=== PATIENT | female | born 1955 | race Caucasian/White ===

== ENCOUNTER → 2016-12-05 | Outpatient (CLI) | payer OTHER | LOC: BMCIMAGING 14:37 | PROVIDERS: ATTEND Podiatrist Foot & Ankle Surgery ==

== ENCOUNTER → 2017-01-07 | Outpatient (CLI) | payer OTHER | LOC: BMCIMAGING 16:28 | PROVIDERS: ATTEND Podiatrist Foot & Ankle Surgery | DX: Z47.89 Encounter for other orthopedic aftercare (principal) ==

== ENCOUNTER → 2017-02-18 | Outpatient (CLI) | payer OTHER ==
[~2017-02-18] MED LIST: GADOBUTROL 10 ML VIAL IVP ONE
== END ==
LOC: FIMAGING 07:14
PROVIDERS: ATTEND Family Medicine Sports Medicine
DX: S73.101D Unspecified sprain of right hip, subsequent encounter (principal); M94.251 Chondromalacia, right hip; M76.02 Gluteal tendinitis, left hip
CPT/HCPCS: A9585

== ENCOUNTER → 2017-03-25 | Outpatient (CLI) | payer OTHER | LOC: BMCIMAGING 14:34 | PROVIDERS: ATTEND Podiatrist Foot & Ankle Surgery | DX: Z09 Encounter for follow-up examination after completed treatment for conditions other than malignant neoplasm (principal); Z98.890 Other specified postprocedural states; M19.072 Primary osteoarthritis, left ankle and foot ==

== ENCOUNTER → 2017-07-02 | Outpatient (CLI) | payer OTHER | LOC: FIMAGING 14:57 | PROVIDERS: ATTEND Podiatrist Foot & Ankle Surgery | DX: M19.072 Primary osteoarthritis, left ankle and foot (principal); Z98.890 Other specified postprocedural states ==

== ENCOUNTER → 2018-04-11 | Outpatient (CLI) | payer OTHER | LOC: FIMAGING 17:27 ==